=== PATIENT | male | born 1975 | race Hispanic/Latino ===

== ENCOUNTER 2017-06-02 04:09 | Emergency (ER) | payer SELFPAY ==
[~2017-06-02] VITALS: Ht 167.6 cm; Wt 87.4 kg
[2017-06-02] MEDS ORDERED: NORCO 5/3251 TABLET PO (05:51)
[2017-06-02] MEDS ORDERED: PEN-VEE K,VEET500 MG PO (05:51)
[2017-06-02 06:19] VITALS: BP 188/98
== END 2017-06-02 06:20 | disposition home or self-care (01) ==
LOC: EME 04:09
PROC: 3E0T3BZ Introduction of Anesthetic Agent into Peripheral Nerves and Plexi, Percutaneous Approach (ICD-10-PCS; principal; 2017-06-02)
DX: K05.00 Acute gingivitis, plaque induced (principal); K04.7 Periapical abscess without sinus
CPT/HCPCS: 99281; 99283